=== PATIENT | male | born 1930 | race Caucasian/White ===

== ENCOUNTER 2018-05-16 11:05 | Inpatient (IN) | payer OTHER, MEDICAID ==
[~2018-05-16] VITALS: Ht 170.2 cm; Wt 92.5 kg
[2018-05-16 11:05] VITALS: BP_SYST 118
[~2018-05-16 11:05] MED LIST: ACET325T53 PO; FINA5TAB3 PO; FURO-150 PO; LISI-600 PO; MELO15TA13 PO; PRO40 PO; TAMS-11 PO
--- NOTE | 2018-05-16 11:05 | NUR ---
Pt BIB BLS, placed to ER bed 04, report given to ASHOK Palma.
--- NOTE | 2018-05-16 11:20 | NUR ---
ER at bedside examining patient.
--- NOTE | 2018-05-16 11:40 | NUR ---
# 20 gauge angiocath placed to LAC. Use of asceptic technique. Opsite placed over site. Blood return noted. Blood for lab drawn from site. Flushed with 10 cc of normal saline. No evidence of infiltration noted. Patient tolerated well.
--- NOTE | 2018-05-16 11:42 | NUR ---
Pt presents to ER sent from [facility] for blood in truong catheter which pt states was inserted yesterday. Pt denies any pain, urine bag has approx 400cc of dark red urine. Pt denies chest pain, denies nausea and vomiting, denies sob. Pt in no acute distress, speaking full sentences, AOX4, ambulatory.
[2018-05-16] MEDS ORDERED: NACL 0.9% 1,000 ML IV ONE (11:45)
[2018-05-16 12:05] LABS: ANION GAP 1 (5-15); CALCIUM 8.3 mg/dL (8.4-11.0); CHLORIDE 101 mmol/L (98-107); CREATININE 1.09 mg/dL (0.55-1.30); GLUCOSE 93 mg/dL (70-99); POTASSIUM 3.9 mmol/L (3.5-5.1); SODIUM SERUM 133 mmol/L (136-145); UREA NITROGEN, BLOOD 25 mg/dL (8-21)
[2018-05-16 12:08] LABS: PROTHROMBIN TIME 10.6 SECS (9.5-12.5)
[2018-05-16 12:10] LABS: ALANINE AMINOTRANSFERASE 9 U/L (12-78); ALBUMIN 2.9 g/dL (3.4-4.8); ASPARTATE AMINOTRANSFERASE 10 U/L (10-37)
[2018-05-16 12:13] LABS: BASOPHILS % (AUTO) 0.4 % (0.0-2.0); EOSINOPHILS # (AUTO) 0.3 K/uL (0.0-0.4); EOSINOPHILS % (AUTO) 2.5 % (0.0-4.0); HEMATOCRIT 34.3 % (36-54); HEMOGLOBIN 11.1 g/dL (14.0-18.0); LYMPHOCYTES # (AUTO) 1.7 K/uL (1.0-5.5); LYMPHOCYTES % (AUTO) 14.8 % (20.5-51.5); MEAN CORPUSCULAR HEMOGLOBIN 27 pg (27-31); MEAN CORPUSCULAR HGB CONC 32 % (32-36); MEAN CORPUSCULAR VOLUME 83 fL (79.0-98.0); MONOCYTES # (AUTO) 1.2 K/uL (0.0-1.0); MONOCYTES % (AUTO) 10.2 % (1.7-9.3); NEUTROPHILS # (AUTO) 8.6 K/uL (1.8-7.7); NEUTROPHILS % (AUTO) 72.1 % (40.0-70.0); PLATELET COUNT (AUTO) 154 K/uL (130-430); RED BLOOD CELL COUNT(AUTO) 4.14 MIL/uL (4.2-6.2); RED CELL DISTRIBUTION WIDTH 14.4 % (9.0-15.0); WHITE BLOOD COUNT (AUTO) 11.8 K/uL (4.8-10.8)
[2018-05-16] MEDS ORDERED: NACL 0.9% 500 ML IV ONE (13:00)
--- NOTE | 2018-05-16 13:00 | NUR ---
rcv report from ASHOK Palma; pt in stable condition; IVF infusing as ordered; will continue to monitor
--- NOTE | 2018-05-16 13:25 | NUR ---
existing F/C removed and replaced with new 16Fr F/C; noted immediate purulent discharge; approximately 1100ml output; severe L testicular swelling noted; aware Addendum: 05/16/18 at 1343 by [email or web address] urine sample collected and sent to lab
[2018-05-16 13:41] LABS: BILIRUBIN,URINE NEGATIVE (NEGATIVE); BLOOD, URINE 3+ (NEGATIVE); CLARITY/URINE CLOUDY (CLEAR); COLOR,URINE YELLOW (YELLOW); GLUCOSE,URINE NEGATIVE (NEGATIVE); KETONES,URINE NEGATIVE (NEGATIVE); LEUKOCYTE ESTERASE ,URINE 3+ (NEGATIVE); NITRITE, URINE NEGATIVE (NEGATIVE); PROTEIN URINE 1+ (NEGATIVE); UROBILINOGEN,URINE 0.2 (0.2-1.0)
[2018-05-16 13:52] LABS: BACTERIA,URINE MANY /HPF (None Seen); RBC,URINE 20-50 /HPF (0-3); WBC,URINE >100 /HPF (0-3)
[2018-05-16 13:53] LABS: MUCUS,URINE 1+ /LPF (None Seen)
[2018-05-16] MEDS ORDERED: CEFEPIME 1 GM in D5W 50 ML IV ONE (14:30)
[2018-05-16] MEDS ORDERED: ALBU2.5V7 INH (14:32)
[2018-05-16] MEDS ORDERED: SPIRIVA INH (14:32)
[2018-05-16] MEDS ORDERED: [UNRECOGNIZED DRUG - CODE] MM (14:32)
[2018-05-16] MEDS ORDERED: LISI-209 PO (14:32)
[2018-05-16] MEDS ORDERED: TRAM1TAB33 PO (14:32)
[2018-05-16] MEDS ORDERED: GUAI100S14 PO (14:32)
[2018-05-16] MEDS ORDERED: MOME13HF2 INH (14:32)
[2018-05-16] MEDS ORDERED: MELA3TAB PO (14:32)
[2018-05-16] MEDS ORDERED: MOM PO (14:32)
[2018-05-16] MEDS ORDERED: FURO-149 PO (14:32)
[2018-05-16] MEDS ORDERED: ROBAC PO (14:32)
--- NOTE | 2018-05-16 14:33 | NUR ---
Medication reconciliation completed with information provided by [facility]. Any prior medication reconciliation on file was reviewed and corrected.
[2018-05-16] MEDS ORDERED: KCL 20 mEq in D5/0.45NS 1000mL 1,000 ML IV ONE (14:45)
[2018-05-16] MEDS ORDERED: CEFEPIME 1 GM/VIAL (MAXIPIME) ONE (14:57)
--- NOTE | 2018-05-16 15:04 | NUR ---
ADMISSION NOTE Received patient from ER via milo, received report from PETRA PULIDO. Patient admitted with diagnosis of UTI/HEMATURIA. Patient oriented to hospital routine, call light, toileting and safety-patient verbalized understanding.
[2018-05-16 15:17] VITALS: BP_SYST 150
--- NOTE | 2018-05-16 15:30 | NUR ---
Pt resting on gurney, no signs of distress, will continue to monitor.
--- NOTE | 2018-05-16 16:25 | NUR ---
Patient will be admitted to care of Dr. Alvarado. Admitted to medsurg unit. Belongings list completed. Summary report printed. Report will be given at bedside.
--- NOTE | 2018-05-16 16:45 | NUR ---
PATIENT IS RESTING, NO SIGNS OF DISTRESS NOTED.
[2018-05-16 16:57] VITALS: BP_SYST 150
[2018-05-16] MEDS ORDERED: ALBUTEROL SULFATE 0.083% 2.5 MG/3 ML VIAL.NEB INH PRN (17:00)
[2018-05-16] MEDS ORDERED: FINASTERIDE 5 MG TABLET (PROSCAR) PO ONE (17:00)
[2018-05-16] MEDS ORDERED: MILK OF MAGNESIA 30 ML UDC PO SCH (17:00)
[2018-05-16] MEDS ORDERED: ACETAMINOPHEN 325 MG TABLET PO SCH (17:00)
[2018-05-16] MEDS ORDERED: MILK OF MAGNESIA 30 ML UDC PO PRN (17:00)
--- NOTE | 2018-05-16 18:25 | NUR ---
PATIENT IS EATING DINNER, NO SIGNS OF DISTRESS NOTED. URINE OUTPUT REMAINS CLEAR .
[2018-05-16] MEDS: guaiFENesin 200 MG/CODEINE 20 MG/ 10 ML UDC PO SCH (18:38)
--- NOTE | 2018-05-16 19:15 | NUR ---
Opening notes Received patient in bed awake, AAOx4, slightly forgetful for needs time to recall information. Able to verbalize his needs. Lungs have crackles and heart sounds wnl. Truong catheter draining by gravity yellow urine. IV infusing fluids with no s/s of infiltration or infection. Not blood noted in the truong bag. Oriented the patient to the room and use of the call light. Informed patient of the bed alarm and acknowledged understanding. Will monitor patient on rounds for any change of condition.
[2018-05-16 20:00] VITALS: BP_SYST 130
--- NOTE | 2018-05-16 22:04 | NUR ---
Patient in bed resting. No appearance of pain or sob using FLACC scale. IV fluids still infusing. Will monitor for any changes.
[2018-05-17] VITALS: BP_SYST 138
[2018-05-17] MEDS: guaiFENesin 200 MG/CODEINE 20 MG/ 10 ML UDC PO SCH ×4 (00:03→18:29)
--- NOTE | 2018-05-17 00:32 | NUR ---
Administered medication for cough and tolerated well. No pain or sob noted. Productive cough with thin secretions. White in color. Safety precautions in place and call light within reach. Will monitor on rounds.
--- NOTE | 2018-05-17 02:18 | NUR ---
Patient in bed asleep with audible breath sounds heard. No appearance of pain or respiratory distress. call light within reach. will monitor on rounds.
--- NOTE | 2018-05-17 04:45 | NUR ---
Patient in bed asleep visualize rise and fall of chest with no pain or respiratory distress. Call light within reach.
[2018-05-17] MEDS: PANTOPRAZOLE SODIUM 40 MG TAB PO SCH (05:37)
--- NOTE | 2018-05-17 05:40 | NUR ---
Administered cough medication and protonix. patient states no cough throughout the night and feels pretty good. No pain or respiratory distress. call light within reach and safety precautions being observed.
[2018-05-17 06:35] LABS: BASOPHILS # (AUTO) 0.1 K/uL (0.0-0.2); BASOPHILS % (AUTO) 1.2 % (0.0-2.0); EOSINOPHILS # (AUTO) 0.7 K/uL (0.0-0.4); EOSINOPHILS % (AUTO) 7.1 % (0.0-4.0); HEMATOCRIT 32.8 % (36-54); LYMPHOCYTES # (AUTO) 2.2 K/uL (1.0-5.5); LYMPHOCYTES % (AUTO) 24.1 % (20.5-51.5); MEAN CORPUSCULAR HEMOGLOBIN 28 pg (27-31); MEAN CORPUSCULAR HGB CONC 34 % (32-36); MEAN CORPUSCULAR VOLUME 84 fL (79.0-98.0); MONOCYTES % (AUTO) 10.4 % (1.7-9.3); NEUTROPHILS # (AUTO) 5.3 K/uL (1.8-7.7); NEUTROPHILS % (AUTO) 57.2 % (40.0-70.0); PLATELET COUNT (AUTO) 139 K/uL (130-430); RED BLOOD CELL COUNT(AUTO) 3.93 MIL/uL (4.2-6.2); RED CELL DISTRIBUTION WIDTH 14.8 % (9.0-15.0); WHITE BLOOD COUNT (AUTO) 9.3 K/uL (4.8-10.8)
[2018-05-17 06:47] LABS: ANION GAP 0 (5-15); CALCIUM 8.2 mg/dL (8.4-11.0); CHLORIDE 104 mmol/L (98-107); CREATININE 0.89 mg/dL (0.55-1.30); GLUCOSE 96 mg/dL (70-99); POTASSIUM 4.2 mmol/L (3.5-5.1); SODIUM SERUM 134 mmol/L (136-145); UREA NITROGEN, BLOOD 20 mg/dL (8-21)
--- NOTE | 2018-05-17 06:48 | NUR ---
Closing Notes Patient in bed resting awake and alert, able to verbalize needs. no pain or respiratory distress. IV intact clean and dry. All needs have been met and will endorse to the oncoming nurse. Safety in place.
[2018-05-17] MEDS: IPRATROPIUM BROM 0.5 MG/2.5 ML VIAL.NEB (ATROVENT) INH SCH ×4 (07:21→19:52)
--- NOTE | 2018-05-17 07:41 | NUR ---
OPENING NOTE: MORNING REPORT WAS TAKEN FROM WOODWIND INSTRUMENT REPAIRER NURSE. PATIENT IS ALERT AND ORIENTED TO NAME AND BIRTHDAY. WHEN ASKED WHERE HE WAS AND DATE AND PRESIDENT, TOOK PATIENT LONG TIME TO RESPOND. PATIENT IS NOT COMPLAINING OF SHORTNESS OF BREATH AND PATIENT IS ON ROOM AIR. PATIENT IS NOT COMPLAINING OF NAUSEA OR VOMITING. PATIENT NOT IN PAIN. NO BLOOD IS SEEN IN ORTIZ BAG. PATIENT HAS SMALL COUGH. BED ALARM IS ON AND CALL LIGHT IS IN REACH. WILL CONTINUE TO MONITOR.
[2018-05-17 08:06] VITALS: BP_SYST 152
[2018-05-17] MEDS: FUROSEMIDE 40 MG TABLET PO SCH (08:41)
[2018-05-17] MEDS: FINASTERIDE 5 MG TABLET (PROSCAR) PO SCH (08:42)
[2018-05-17] MEDS: LISINOPRIL 5 MG TABLET PO SCH (08:42)
--- NOTE | 2018-05-17 08:42 | NUR ---
NOTE: PATIENT WAS ON BED SALINAS. TOOK PATIENT OFF. DID NOT HAVE BOWEL MOVEMENT. PATIENT SAID HE USUALLY GOES AFTER BREAKFAST. GAVE PATIENT MORNING MEDICATION. EDUCATED PATIENT ON LASIX. PATIENT WATCHING TV AND IV FLUIDS FINISHING UP. WILL CONTINUE TO MONITOR.
[2018-05-17 12:00] VITALS: BP_SYST 144
--- NOTE | 2018-05-17 13:35 | NUR ---
NOTE: PATIENT WATCHING TV. PATIENT FINISHED LUNCH. GAVE PATIENT ROBITUSSIN. PATIENT SAID HE HAD LITTLE COUGH WHEN HE WAS EATING LUNCH. PATIENT SALINE LOCKED. ORTIZ HANGING TO GRAVITY. WILL CONTINUE TO MONITOR.
--- NOTE | 2018-05-17 16:18 | NUR ---
NOTE: PATIENT SITTING IN BED WITH NO SIGNS OF DISTRESS. FAMILY IS AT BEDSIDE. PATIENT HAS NO FURTHER REQUEST AT MOMENT. WILL CONTINUE TO MONITOR.
[2018-05-17 16:46] VITALS: BP_SYST 129
--- NOTE | 2018-05-17 18:33 | NUR ---
CLOSING NOTE: PATIENT SITTING IN BED FINISHING UP DINNER. PATIENT IS NOT COMPLAINING OF PAIN OR SHORTNESS OF BREATH. PATIENT IS ON ROOM AIR. PATIENT SAID HE HAD A LITTLE COUGH. GAVE COUGH MEDICINE. NIECE SITTING AT BEDSIDE TALKING TO PATIENT. ORTIZ IS HANGING TO GRAVITY. NO BLOOD WAS SEEN IN IT THROUGH OUT SHIFT. PATIENT SALINE LOCKED. UPDATED PATIENT ON PLAN OF CARE FOR TOMORROW. PATIENT HAS NO FURTHER REQUEST. BED ALARM IS ON AND CALL LIGHT IS IN REACH. WILL CONTINUE TO MONITOR AND GIVE REPORT TO FOOD SAFETY AUDITOR NURSE.
[2018-05-17 19:55] VITALS: BP_SYST 130
--- NOTE | 2018-05-17 19:55 | NUR ---
INITIAL NOTE AT INITIAL ASSESSMENT, PATIENT IS RESTING IN BED, STABLE, NO SIGNS OF RESPIRATORY DISTRESS. PATIENT VERBALIZES NO PAIN. PLAN OF CARE FOR THE EVENING IS COMMUNICATED WITH THE PATIENT. CALL LIGHT- TEACH BACK IS SUCCESSFUL. BED IS LOCKED, ALARMED, AND AT THE LOWEST LEVEL.
--- NOTE | 2018-05-17 21:53 | NUR ---
NOTE PATIENT IS RESTING IN BED, STABLE, NO SIGNS OF RESPIRATORY DISTRESS. PATIENT IS GIVEN A BED BATH BY URIEL SLATER, PATIENT IS ALSO POSITIONED FOR COMFORT. CALL LIGHT IS WITHIN REACH. BED IS LOCKED, ALARMED, AND AT THE LOWEST LEVEL.
--- NOTE | 2018-05-17 23:50 | NUR ---
NOTE PATIENT IS SLEEPING, STABLE, NO SIGNS OF RESPIRATORY DISTRESS. CALL LIGHT WITHIN REACH. BED IS LOCKED, ALARMED, AND AT THE LOWEST LEVEL.
[2018-05-18 00:42] VITALS: BP_SYST 137
--- NOTE | 2018-05-18 01:45 | NUR ---
NOTE PATIENT IS SLEEPING, STABLE, NO SIGNS OF RESPIRATORY DISTRESS. CALL LIGHT IS WITHIN REACH. BED IS LOCKED, ALARMED, AND AT THE LOWEST LEVEL.
--- NOTE | 2018-05-18 03:42 | NUR ---
NOTE PATIENT IS SLEEPING, STABLE, NO SIGNS OF RESPIRATORY DISTRESS. CALL LIGHT IS WITHIN REACH. BED IS LOCKED, ALARMED, AND AT THE LOWEST LEVEL.
--- NOTE | 2018-05-18 05:14 | NUR ---
NOTE PATIENT IS SLEEPING, STABLE, NO SIGNS OF RESPIRATORY DISTRESS. CALL LIGHT IS WITHIN REACH. BED IS LOCKED, ALARMED, AND AT THE LOWEST LEVEL.
[2018-05-18] MEDS: guaiFENesin 200 MG/CODEINE 20 MG/ 10 ML UDC PO SCH ×5 (06:38→23:14)
[2018-05-18] MEDS: PANTOPRAZOLE SODIUM 40 MG TAB PO SCH (06:38)
--- NOTE | 2018-05-18 06:52 | NUR ---
CLOSING NOTE PATIENT IS RESTING UPRIGHT IN BED, STABLE, NO SIGNS OF RESPIRATORY DISTRESS. PATIENT VERBALIZES NO PAIN. CALL LIGHT WITHIN REACH. BED IS LOCKED, ALARMED, AND AT THE LOWEST LEVEL. PATIENT HAS BEEN TURNED A3YICNB THROUGHOUT THE SHIFT. ALL NEEDS FOR PATIENT HAVE BEEN MET. WILL CONTINUE TO MONITOR UNTIL SHIFT REPORT IS GIVEN AT BEDSIDE TO AM NURSE.
[2018-05-18] MEDS: IPRATROPIUM BROM 0.5 MG/2.5 ML VIAL.NEB (ATROVENT) INH SCH ×4 (07:00→19:51)
[2018-05-18 08:00] VITALS: BP_SYST 152
--- NOTE | 2018-05-18 08:00 | NUR ---
Nutrition Update Darrick Scale 16 noted. Pt admitted for UTI, Hematuria Diet: regular diet BMI: 32 kg/m2 RD to follow per nutrition care standards.
--- NOTE | 2018-05-18 08:00 | NUR ---
Opening Note Report received from [facility] shift nurse. Patient is alert and oriented x 3. Patient is currently resting in bed. IV is on the left ac 20g saline locked. Bolanos cath is draining clear yellow urine. NO blood noted in the urine. Call light is within reach and bed is in low position. Will continue to monitor.
--- NOTE | 2018-05-18 08:27 | NUR ---
Mobility Up in the bed to bathroom using front wheel walker , with assist tolerates well .
[2018-05-18] MEDS: FINASTERIDE 5 MG TABLET (PROSCAR) PO SCH (09:11)
[2018-05-18] MEDS: LISINOPRIL 5 MG TABLET PO SCH (09:11)
[2018-05-18] MEDS: FUROSEMIDE 40 MG TABLET PO SCH (09:12)
[2018-05-18] MEDS ORDERED: MILK OF MAGNESIA 30 ML UDC PO PRN (10:00)
--- NOTE | 2018-05-18 10:20 | NUR ---
Rounds Assisted the patient to the restroom and back into bed.
[2018-05-18 11:18] VITALS: BP_SYST 129
--- NOTE | 2018-05-18 12:32 | NUR ---
Rounds Patient is eating lunch. No signs of distress noted.
--- NOTE | 2018-05-18 14:27 | NUR ---
Rounds Patient is resting in bed. Bolanos cath is draining clear yellow urine.
[2018-05-18 15:44] VITALS: BP_SYST 143
--- NOTE | 2018-05-18 16:26 | NUR ---
Rounds Patient is resting in bed. Call light is within reach.
--- NOTE | 2018-05-18 18:26 | NUR ---
Closing Note Patient is eating dinner in bed. IV is on the LAC 20g saline locked. Isolation precautions are in place. Call light is within reach and bed is in low position. Will endorse care to the oncoming nurse.
--- NOTE | 2018-05-18 19:55 | NUR ---
Initial Note Received patient awake, alert and oriented x3 with daughter at the bedside. [place] CL[place]. No SOB noted. Denies any pain or n/v at this time. Saline lock. F/C intact and draining yellow colored urine. Abdomen is slightly distended and was given medication for constipation by AM nurse. SCDs applied. Skin intact and mild edema noted on BLE-elevated on pillows. Care and monitoring will be provided per protocol. Needs attended. Call light within reach. Bed alarm on and at lowest position at all times. Kept warm and comfortable.
[2018-05-18 20:00] VITALS: BP_SYST 136
[2018-05-18] MEDS: MUPIROCIN 2% TOPICAL OINTMENT 22 GM NS SCH (20:42)
--- NOTE | 2018-05-18 20:42 | NUR ---
RN Note Due topical ointment applied as ordered. Repositioned. Call light within reach and bed alarm is on. No complaints. Reconfirm earlier with daughter Fabiana who has a Power of Bending Roll Hand and patient on patient's code status that patient is DNR. Charge nurse Dennis duke. Daughter left. Kept warm and comfortable.
[2018-05-18] MEDS ORDERED: MELATONIN 3 MG TAB PO SCH (21:00)
--- NOTE | 2018-05-19 | NUR ---
RN Note Arousable. Due cough medication given. No SOB noted. Denies pain at this time. Repositioned. Kept warm and comfortable.
[2018-05-19 00:06] VITALS: BP_SYST 146
--- NOTE | 2018-05-19 01:30 | NUR ---
RN Note Assisted patient to the bathroom with a walker, feeling he will have a bowel movement but no stool noted. Abdomen is still distended. Will notify MD in am. Assisted back to bed. Bed alarm on and bed at low position. Call light within reach. Kept warm and comfortable.
--- NOTE | 2018-05-19 04:00 | NUR ---
RN Note Sleeping at this time. No SOB or grimacing noted.
[2018-05-19] MEDS: PANTOPRAZOLE SODIUM 40 MG TAB PO SCH (05:57)
[2018-05-19] MEDS: guaiFENesin 200 MG/CODEINE 20 MG/ 10 ML UDC PO SCH ×2 (05:58→12:03)
--- NOTE | 2018-05-19 06:27 | NUR ---
End Note Afebrile. VS stable. No complain of pain, SOB or n/v throughout the night. Due meds given. Coughs occasionally. Saline lock. For PT today. SCDs. Still has no BM. Will endorse. Skin intact. Mild edema on BLE. Swollen testicles. F/C intact and draining well. No blood clots noted. Care and monitoring provided per protocol. Call light within reach. Bed alarm on and at lowest position. Needs attended. Kept clean, dry and comfortable. Isolation and fall precaution observed. Patient verbalized feelings on , that he is ready anytime. Emotional support given.
[2018-05-19] MEDS: IPRATROPIUM BROM 0.5 MG/2.5 ML VIAL.NEB (ATROVENT) INH SCH ×3 (07:00→15:37)
[2018-05-19 08:10] VITALS: BP_SYST 136
--- NOTE | 2018-05-19 08:20 | NUR ---
OPENING NOTE LATE ENTRY DUE TO PT CARE: REPORT IS RECEIVED FROM SEXER NURSE AND CARE IS ENDORSED TO MYSELF. PT IS RECEIVED AWAKE, ALERT, AND ORIENTED X3. NO SIGNS OR SYMPTOMS OF DISTRESS OR SOB NOTED. WHITE BOARD IS UPDATED WITH CURRENT INFORMATION AND PLAN OF CARE IS DISCUSSED. CURRENT NEEDS ARE MET. BED IS AT LOWEST POSITION, CALL LIGHT WITHIN REACH, THREE SIDE RAILS UP, BED ALARM IS ON. WILL CONTINUE TO MONITOR.
[2018-05-19] MEDS: FINASTERIDE 5 MG TABLET (PROSCAR) PO SCH (09:09)
[2018-05-19] MEDS: FUROSEMIDE 40 MG TABLET PO SCH (09:09)
[2018-05-19] MEDS: LISINOPRIL 5 MG TABLET PO SCH (09:09)
[2018-05-19] MEDS: MUPIROCIN 2% TOPICAL OINTMENT 22 GM NS SCH (09:10)
--- NOTE | 2018-05-19 10:30 | NUR ---
PHYSICAL THERAPY CO-SIGN The Physical Therapy Progress Notes documented by Sorter Pricer have been reviewed. I concur with the documentation of this PLATE GLASS INSTALLER HELPER. Plan: continue as per plan of care if he remains in this hospital. Reviewed/Co-Signed by: Johanna Izaguirre PT Documentation Done by: Raleigh Russo, PLATE GLASS INSTALLER HELPER Addendum: 05/19/18 at 1337 by Johanna Izaguirre PT Amended: Links added.
--- NOTE | 2018-05-19 10:36 | NUR ---
ROUNDS PT IS AWAKE AND ALERT. NO SIGNS OR SYMPTOMS OF DISTRESS OR SOB NOTED. PT WAS REPOSITIONED TO RIGHT SIDE. CURRENT NEEDS ARE MET. BED IS AT LOWEST POSITION, CALL LIGHT WITHIN REACH, THREE SIDE RAILS, BED ALARM IS ON. WILL CONTINUE TO MONITOR.
[2018-05-19 11:15] VITALS: BP_SYST 128
--- NOTE | 2018-05-19 12:05 | NUR ---
ROUNDS PT IS AWAKE AND ALERT. FAMILY FRIEND ARE AT BEDSIDE. NO SIGNS OR SYMPTOMS OF DISTRESS OR SOB NOTED. PT DENIES ANY PAIN. PT REFUSED TO BE REPOSITIONED AT THIS TIME DUE TO HAVING VISITOR. CURRENT NEEDS ARE MET. BED IS AT LOWEST POSITION, CALL LIGHT WITHIN REACH, THREE SIDE RAILS UP, BED ALARM IS ON. WILL CONTINUE TO MONITOR.
[2018-05-19] MEDS ORDERED: cefTRIAXone 1 GM in D5W 50 ML IV SCH (13:00)
--- NOTE | 2018-05-19 13:22 | NUR ---
Discharge Planning: Pt has order to discharge back to [facility] ([phone], ). DCP faxed information to JULIUS Arnold to follow up for bed assignment.
--- NOTE | 2018-05-19 14:07 | NUR ---
ROUNDS PT IS AWAKE AND ALERT, WATCHING TV. NO SIGNS OR SYMPTOMS OF DISTRESS OR SOB NOTED. PT DENIES ANY PAIN. PT WAS REPOSITIONED TO RIGHT SIDE. CURRENT NEEDS ARE MET. BED IS AT LOWEST POSITION, CALL LIGHT WITHIN REACH, THREE SIDE RAILS UP, BED ALARM IS ON. WILL CONTINUE TO MONITOR.
[2018-05-19 15:12] VITALS: BP_SYST 148
--- NOTE | 2018-05-19 15:54 | NUR ---
Discharge Planning OUTSIDE SALES INSPECTOR received the order for patient to be discharged back to [facility], p [phone] f [phone]. Patient's information was faxed at 12:50pm. OUTSIDE SALES INSPECTOR phoned [facility] and patient is accepted back to room [address] [place] then called back requesting the information be faxed again. OUTSIDE SALES INSPECTOR faxed again. OUTSIDE SALES INSPECTOR spoke with Gaby PULIDO who stated patient would be ready for transfer at 18:30. [facility] ambulance, , [facility] arranged for 18:30.
--- NOTE | 2018-05-19 16:15 | NUR ---
ROUNDS PT IS AWAKE AND ALERT, WATCHING TV. FRIEND IS AT BESIDE. NO SIGNS OR SYMPTOMS OF DISTRESS OR SOB NOTED. PT DENIES ANY PAIN. CURRENT NEEDS ARE MET. BED IS AT LOWEST POSITION, CALL LIGHT WITHIN REACH, THREE SIDE RAILS UP, BED ALARM IS ON. WILL CONTINUE TO MONITOR.
[2018-05-19 16:25] VITALS: BP_SYST 148
[2018-05-19] MEDS ORDERED: ROCPM1 IV (16:41)
--- NOTE | 2018-05-19 18:26 | NUR ---
PT TRANSFERRED Report given to SUSAN BORGES. Transfer packet with Transfer Orders and Medication Reconciliation form given to EMT with report. Exitcare provided. [facility] ID band removed, replaced with ID band with pt's name and . All belongings sent with patient. Patient left floor via gurney escorted by EMT in no distress.
== END 2018-05-19 18:47 | DRG 690 ==
LOC: SED 11:05 → SMU 14:34
PROVIDERS: ADMIT Family Medicine; ATTEND Family Medicine
DX: N39.0 Urinary tract infection, site not specified (principal); I10 Essential (primary) hypertension; J44.9 Chronic obstructive pulmonary disease, unspecified; N40.0 Benign prostatic hyperplasia without lower urinary tract symptoms; Z66 Do not resuscitate; M19.90 Unspecified osteoarthritis, unspecified site; I48.91 Unspecified atrial fibrillation; F03.90 Unspecified dementia, unspecified severity, without behavioral disturbance, psychotic disturbance, mood disturbance, and anxiety; Z85.46 Personal history of malignant neoplasm of prostate; Z79.899 Other long term (current) drug therapy; R31.9 Hematuria, unspecified
CPT/HCPCS: 36415; 80048; 80053; 81000-TC; 83605; 85025; 85610-TC; 85730-TC; 87040-TC; 87081; 87086; 87186-TC; 94640; 94760; 96360; 97110-GP; 97116-GP; 97530-GP; 99285; J0692; J0696; J7060; J7613